=== PATIENT | male | born 1955 | race Caucasian/White ===

== ENCOUNTER 2020-02-23 17:01 | Emergency (ER) | payer MEDICARE, BC ==
[2020-02-23] MEDS: Sodium Chloride 0.9% 10 ML Syringe FLUSH PRN ×2 (17:49→19:03)
--- NOTE | 2020-02-23 17:53 | EDM.PDOC ---
<Tabitha Rivas M - Last Filed: 02/23/20 19:54> ED HPI GENERAL MEDICAL PROBLEM - General Chief Complaint: General Stated Complaint: SOB,COUGH Time Seen by Provider: 02/23/20 17:35 Source of Information: Reports: Patient, RN, RN Notes Reviewed, Significant Other History Limitations: Reports: No Limitations - History of Present Illness INITIAL COMMENTS - FREE TEXT/NARRATIVE: Pt here with spouse. Were at pool today and pt was in pool wading. At 1600 pt was getting out of pool and had an extreme episode of SOB and coughing. Coughed up large amounts of yellow sputum and could not catch his breath. Denies any RX meds or any comorbidities. Denies pain in any extremities. Onset: Today Onset Date: 02/23/20 Onset Time: 16:00 Duration: Hour(s): Location: Reports: Chest Severity: Severe Associated Symptoms: Reports: Cough, Shortness of Breath - Related Data Allergies Allergy/AdvReac Type Severity Reaction Status Date / Time No Known Allergies Allergy Verified 02/23/20 17:24 Home Meds: Home Meds NK [No Known Home Meds] 02/23/20 [History] Past Medical History - Past Surgical History GI Surgical History: Reports: Hernia, Inguinal Social & Family History - Tobacco Use Smoking Status *Q: Never Smoker - Caffeine Use Caffeine Use: Reports: Coffee - Recreational Drug Use Recreational Drug Use: No ED ROS GENERAL - Review of Systems Review Of Systems: See Below Constitutional: Reports: No Symptoms HEENT: Reports: No Symptoms Respiratory: Reports: Shortness of Breath, Wheezing, Cough, Sputum Cardiovascular: Reports: Dyspnea on Exertion Endocrine: Reports: No Symptoms GI/Abdominal: Reports: No Symptoms : Reports: No Symptoms Musculoskeletal: Reports: No Symptoms Skin: Reports: No Symptoms Neurological: Reports: No Symptoms Psychiatric: Reports: No Symptoms Hematologic/Lymphatic: Reports: No Symptoms Immunologic: Reports: No Symptoms ED EXAM, GENERAL - Physical Exam Exam: See Below Exam Limited By: No Limitations General Appearance: Alert, WD/WN, Mild Distress Throat/Mouth: Normal Inspection, Normal Lips, Normal Teeth, Normal Oropharynx, Normal Voice, No Airway Compromise Head: Normocephalic Neck: Normal Inspection Respiratory/Chest: Crackles, Rhonchi, Wheezing, Accessory Muscle Use Cardiovascular: Normal Peripheral Pulses, Regular Rate, Rhythm, No Murmur Peripheral Pulses: 1+: Dorsalis Pedis (L), Dorsalis Pedis (R), 2+: Radial (L), Radial (R) GI/Abdominal: Normal Bowel Sounds, Soft, Non-Tender (Male) Exam: Deferred Rectal (Males) Exam: Deferred Extremities: Normal Inspection, Normal Range of Motion, Non-Tender, Normal Capillary Refill, Mottled Neurological: Alert, Oriented, CN II-XII Intact, Normal Reflexes Psychiatric: Normal Affect, Normal Mood Skin Exam: Warm, Dry, Intact, Mottled, Other (BLLE edema +2/+3) Lymphatic: No Adenopathy Course - Re-Assessments/Exams Free Text/Narrative Re-Assessment/Exam: 02/23/20 17:53 Examine pt and take H&P. Will order CXR and labs. PIV in 02/23/20 18:39 Imaging and labs resulting Departure - Departure Disposition: Home, Self-Care 01 Clinical Impression: Pulmonary edema caused by chemical fumes - Discharge Information Instructions: Pulmonary Edema, [id number] Referrals: PCP,None [Primary Care Provider] - Forms: ED Department Discharge Additional Instructions: Continue with your regular medications, please follow-up with your primary care upon return home consider consultations with pulmonary medicine and cardiology a copy of the CT scan result has been sent to [facility], call or return to the emergency department worsening of symptoms Sepsis Event Note (ED) - Evaluation Sepsis Screening Result: No Definite Risk <OfficerDiogo - Last Filed: 02/23/20 21:39> ED EXAM, GENERAL - Physical Exam Free Text/Narrative:: Agree with exam below Course - Vital Signs Last Recorded V/S: Last Vital Signs Temp 97.9 F 02/23/20 17:26 Pulse 74 02/23/20 21:02 Resp 15 02/23/20 21:02 BP 153/68 H 02/23/20 21:02 Pulse Ox 97 02/23/20 20:27 - Orders/Labs/Meds Orders: Active Orders 24 hr Category Date Time Status EKG Documentation Completion [RC] ASDIRECTED Care 02/23/20 18:16 Active Oxygen Therapy Adult [Oxygen Therapy] [RC] ASDIRECTED Care 02/23/20 17:44 Active Peripheral IV Care [RC] . DIRECTED Care 02/23/20 17:44 Active Chest 2V [CR] Stat Exams 02/23/20 17:41 Taken Iopamidol [Isovue-370 (76%)] Med 02/23/20 19:00 Active 100 ml IV . DIRECTED Sodium Chloride 0.9% [Normal Saline] 1,000 ml Med 02/23/20 19:00 Active IV ASDIRECTED Sodium Chloride 0.9% [Normal Saline] 100 ml Med 02/23/20 19:00 Active IV ASDIRECTED Sodium Chloride 0.9% [Saline Flush] Med 02/23/20 17:44 Active 10 ml FLUSH ASDIRECTED PRN Peripheral IV Insertion Adult [OM.PC] Routine Oth 02/23/20 17:44 Ordered EKG 12 Lead [EK] Stat Ther 02/23/20 18:15 Ordered Medication Orders Sodium Chloride (Normal Saline) 1,000 mls @ 500 mls/hr IV ASDIRECTED MELY Last Admin: 02/23/20 19:14 Dose: 500 mls/hr Documented by: KACI Sodium Chloride (Normal Saline) 100 mls @ 3 mls/sec IV ASDIRECTED MELY Last Admin: 02/23/20 19:04 Dose: 3 mls/sec Documented by: MEAGHAN Iopamidol (Isovue-370 (76%)) 100 ml IV . DIRECTED MELY Last Admin: 02/23/20 19:04 Dose: 100 ml Documented by: MEAGHAN Sodium Chloride (Saline Flush) 10 ml FLUSH ASDIRECTED PRN PRN Reason: Keep Vein Open Last Admin: 02/23/20 19:03 Dose: 10 ml Documented by: Admin: 02/23/20 17:49 Dose: 10 ml Documented by: HERMINIO Labs: Laboratory Tests 02/23/20 02/23/20 02/23/20 Range/Units 18:02 18:02 18:02 WBC 12.0 H (4.5-11.0) K/uL RBC 5.01 (4.30-5.90) M/uL Hgb 14.5 (12.0-15.0) g/dL Hct 45.2 (40.0-54.0) % MCV 90 (80-98) fL MCH 29 (27-31) pg MCHC 32 (32-36) % Plt Count 219 (150-400) K/uL Neut % (Auto) 81 H (36-66) % Lymph % (Auto) 10 L (24-44) % [place] % (Auto) 6 (2-6) % Eos % (Auto) 2 (2-4) % Baso % (Auto) 0 (0-1) % D-Dimer, Quantitative 799 H (0.0-400.0) ng/mL Sodium 141 (140-148) mmol/L Potassium 4.4 (3.6-5.2) mmol/L Chloride 105 (100-108) mmol/L Carbon Dioxide 27 (21-32) mmol/L Anion Gap 8.6 (5.0-14.0) mmol/L BUN 16 (7-18) mg/dL Creatinine 1.4 H (0.8-1.3) mg/dL Est Cr Clr Drug Dosing 56.20 mL/min Estimated GFR (MDRD) 51 L (>60) Glucose 158 H (74-106) mg/dL Calcium 8.8 (8.5-10.1) mg/dL Total Bilirubin 0.6 (0.2-1.0) mg/dL AST 22 (15-37) U/L ALT 14 (12-78) U/L Alkaline Phosphatase 85 (46-116) U/L Troponin I (0.000-0.056) ng/mL NT-Pro-B Natriuret Pep 1517 H (5-125) pg/mL Total Protein 7.1 (6.4-8.2) g/dL Albumin 4.0 (3.4-5.0) g/dL Globulin 3.1 (2.3-3.5) g/dL Albumin/Globulin Ratio 1.3 (1.2-2.2) 07/30/20 Range/Units 18:28 WBC (4.5-11.0) K/uL RBC (4.30-5.90) M/uL Hgb (12.0-15.0) g/dL Hct (40.0-54.0) % MCV (80-98) fL MCH (27-31) pg MCHC (32-36) % Plt Count (150-400) K/uL Neut % (Auto) (36-66) % Lymph % (Auto) (24-44) % [place] % (Auto) (2-6) % Eos % (Auto) (2-4) % Baso % (Auto) (0-1) % D-Dimer, Quantitative (0.0-400.0) ng/mL Sodium (140-148) mmol/L Potassium (3.6-5.2) mmol/L Chloride (100-108) mmol/L Carbon Dioxide (21-32) mmol/L Anion Gap (5.0-14.0) mmol/L BUN (7-18) mg/dL Creatinine (0.8-1.3) mg/dL Est Cr Clr Drug Dosing mL/min Estimated GFR (MDRD) (>60) Glucose (74-106) mg/dL Calcium (8.5-10.1) mg/dL Total Bilirubin (0.2-1.0) mg/dL AST (15-37) U/L ALT (12-78) U/L Alkaline Phosphatase (46-116) U/L Troponin I 0.021 (0.000-0.056) ng/mL NT-Pro-B Natriuret Pep (5-125) pg/mL Total Protein (6.4-8.2) g/dL Albumin (3.4-5.0) g/dL Globulin (2.3-3.5) g/dL Albumin/Globulin Ratio (1.2-2.2) Meds: Medications Generic Name Dose Route Start Last Admin Trade Name Freq PRN Reason Stop Dose Admin Sodium Chloride 1,000 mls @ 500 mls/hr 02/23/20 19:00 02/23/20 19:14 Normal Saline IV 500 mls/hr ASDIRECTED MELY Administration Sodium Chloride 100 mls @ 3 mls/sec 02/23/20 19:00 02/23/20 19:04 Normal Saline IV 3 mls/sec ASDIRECTED MELY Administration Iopamidol 100 ml 02/23/20 19:00 02/23/20 19:04 Isovue-370 (76%) IV 100 ml . DIRECTED MELY Administration Sodium Chloride 10 ml 02/23/20 17:44 02/23/20 19:03 Saline Flush FLUSH 10 ml ASDIRECTED PRN Administration Keep Vein Open Departure - Departure Time of Disposition: 21:37 Condition: Fair Sepsis Event Note (ED) - Focused Exam Vital Signs: Vital Signs Temp Pulse Resp BP Pulse Ox 02/23/20 21:02 74 15 153/68 H 02/23/20 20:27 74 26 H 155/86 H 97 02/23/20 20:05 74 26 H 147/77 H 94 L 02/23/20 18:36 78 32 H 167/60 H 96 02/23/20 17:31 83 21 H 173/103 H 93 L 02/23/20 17:26 97.9 F 90 20 150/86 H 90 L 02/23/20 17:20 97.9 F 90 20 150/86 H 90 L - My Orders Last 24 Hours: My Active Orders 02/23/20 18:15 EKG 12 Lead [EK] Stat 02/23/20 18:16 EKG Documentation Completion [RC] ASDIRECTED 02/23/20 19:00 Iopamidol [Isovue-370 (76%)] 100 ml IV . DIRECTED Sodium Chloride 0.9% [Normal Saline] 1,000 ml IV ASDIRECTED Sodium Chloride 0.9% [Normal Saline] 100 ml IV ASDIRECTED - Assessment/Plan Last 24 Hours: My Active Orders 02/23/20 18:15 EKG 12 Lead [EK] Stat 02/23/20 18:16 EKG Documentation Completion [RC] ASDIRECTED 02/23/20 19:00 Iopamidol [Isovue-370 (76%)] 100 ml IV . DIRECTED Sodium Chloride 0.9% [Normal Saline] 1,000 ml IV ASDIRECTED Sodium Chloride 0.9% [Normal Saline] 100 ml IV ASDIRECTED Plan: Assessment Acuity = acute Site and laterality = probable flash pulmonary edema Etiology = suspicious for chemical exposure while in the pool Manifestations = dyspnea now resolved Location of injury = Home Lab values = WBC elevated 12.0 consistent leukocytosis d-dimer elevated 799 of uncertain significance creatinine elevated 1.4 consistent chronic renal failure stage T3a troponin 0.021 normal range uncertain significance BNP slightly elevated 1517, CT scan describes 2 issues groundglass appearance in the lower lobes, the other is a 2 cm mass right lower lobe of unclear significance Plan I did provide a copy of the CT scan results to him he was able to ambulate aroun d the emergency department initially became hypoxic down to 87 but then quickly responded after his heart rate increased and took a deep breath to 94%. He does not have any dyspnea at rest I talked to him about his CT scan results he is going to follow-up with his primary care in [place] and then visit with pulmonary medicine about the pulmonary mass and groundglass appearance. Also recommend follow-up with cardiology for the increased shortness of breath and leg cramping with ambulation Auscultation on discharge rhonchi are still present however improved with better air movement than initial exam Diogo Richards MD was personally available for consultation in the ED. I have reviewed the chart and agree with the documentation as recorded by the [employer]IST Student, including the assessment, treatment plan and disposition. Diogo Richards MD personally saw and examined the patient. I have reviewed and agree with the LE[employer] SENIOR [employer]IST Student's findings. This note was dictated using [employer] voice recognition software please call with any questions on syntax or grammar.
[2020-02-23] MEDS ORDERED: Sodium Chloride 0.9% 1,000 ML IV SCH (19:00)
[2020-02-23] MEDS ORDERED: Iopamidol 755 Mg/ML 100 ML Bottle IV SCH (19:00)
[2020-02-23] MEDS ORDERED: Sodium Chloride 0.9% 100 ML IV SCH (19:00)
--- NOTE | 2020-02-23 20:27 | CRLCT ---
INDICATION: Hypoxic. COMPARISON: None available. TECHNIQUE: CTA of the chest. 100 cc of Isovue 370 FINDINGS: No pulmonary artery embolism. There is advanced coronary artery disease. There are atherosclerotic changes in the thoracic aorta without thoracic aortic aneurysm. No obvious dissection. Moderate stenosis of the SMA. Cholelithiasis. Multiple calcified granulomas in the spleen. Adrenal glands are unremarkable in appearance. No pneumothorax. The central airways are patent. The proximal neck arteries are patent. A prevascular lymph node measures 10 mm on image 43, series 4 small pretracheal lymph nodes are seen. A right hilar lymph node measures 14 mm on image 69. Densely calcified left hilar and left infrahilar lymph nodes that are enlarged are seen. Mildly calcified sub carinal lymph node. Large calcified pulmonary nodule left lower lobe on image 96. Large 22 mm right lower lobe pulmonary nodule on image 102, solid. Extensive lower lobe predominant ground-glass opacity. Additionally there is interlobular septal thickening in the posterior lower lobes. No bronchiectasis or honeycombing. The SVC is patent. No aggressive appearing osseous lesion. IMPRESSION: 1. No pulmonary artery embolism. 2. Extensive lower lobe predominant ground-glass opacity with additional interlobular septal thickening. The differential is broad and includes pulmonary edema, atypical/viral infection, diffuse alveolar damage, hemorrhage, and is nonspecific. 3. Large 2 mm right lower lobe pulmonary nodule with a solid appearance, different in appearance than the other opacities. Recommend correlation with priors and if none available a follow-up chest CT, PET or biopsy in 3 months. 4. Extensive stigmata of previous granulomatous disease in the left lung, left hilum, subcarinal region, and spleen. 5. Additional mild noncalcified mediastinal and right hilar lymphadenopathy, nonspecific. Please note that all CT scans at this facility use dose modulation, iterative reconstruction, and/or weight-based dosing when appropriate to reduce radiation dose to as low as reasonably achievable. Dictated by Anival Head MD @ Feb 23 2020 7:52PM (Electronically Signed)
--- NOTE | 2020-02-24 08:59 | CR ---
CHEST: 2 view CLINICAL HISTORY:SOB COMPARISON:None FINDINGS: Heart size and pulmonary vascularity are normal. There are patchy bilateral lower lung infiltrates. There are atherosclerotic changes in the aorta. Impression: Bilateral lower lung pulmonary infiltrates. Short-term follow-up recommended until clear
== END 2020-02-23 21:57 | disposition home or self-care (01) ==
LOC: JP.ED 17:01
DX: T59.91XA Toxic effect of unspecified gases, fumes and vapors, accidental (unintentional), initial encounter (principal); J68.1 Pulmonary edema due to chemicals, gases, fumes and vapors
CPT/HCPCS: 36415; 71046; 71275; 80053; 83880; 84484; 85025; 85379; 93005; 96360; 96361; 99285; J7030; J7050; Q9967; 93010; 99284